=== PATIENT | male | born 1975 | race Caucasian/White ===

== ENCOUNTER 2017-11-13 09:38 | Emergency (ER) | payer SELFPAY ==
[~2017-11-13] VITALS: Ht 188 cm; Wt 90.7 kg
[2017-11-13] MEDS ORDERED: IV NORMAL SALINE 1,000ML 1,000 ML IV ONE (10:00)
[2017-11-13] MEDS ORDERED: KETOROLAC 30 MG/ML VIAL. IV ONE (10:15)
[2017-11-13] MEDS ORDERED: ONDANSETRON PF 4 MG/2 ML VIAL. IV ONE (10:15)
--- NOTE | 2017-11-13 10:26 | ED.ADGEN ---
Past History Past Medical History: Other Past Surgical History: No Surgical History Alcohol Use: None Drug Use: None Adult General Chief Complaint Chief Complaint Left flank pain [facility] HPI Patient is a 42-year-old male who presents with left flank pain. Pain is sharp, rated moderate to severe is intermittent and radiates from flank to left groin. No palliative or provocative features. Symptom onset was yesterday. Pain feels similar to previous kidney stone episodes. Reports nausea no vomiting. No fever chills or sweats. No hematuria, urinary frequency or decreased urinary output. No other acute symptoms or complaints. [] Review of Systems Review of Systems ROS as per HPI[] All other systems were reviewed and found to be within normal limits, except as documented in this note. Current Medications Current Medications Current Medications Medications (Trade) Dose Ordered Sig/Jamel Start Time Stop Time Status Last Admin Dose Admin Acetaminophen/ Hydrocodone Bitart (Lortab 5/325) 1 tab 1X ONCE 11/13/17 11:45 11/13/17 11:46 DC 11/13/17 11:59 1 TAB Ketorolac Tromethamine (Toradol) 30 mg 1X ONCE 11/13/17 10:15 11/13/17 10:16 DC 11/13/17 10:03 30 MG Ondansetron HCl (Zofran) 4 mg 1X ONCE 11/13/17 10:15 11/13/17 10:16 DC 11/13/17 10:03 4 MG Sodium Chloride 1,000 ml @ 1,000 mls/hr 1X ONCE 11/13/17 10:00 11/13/17 10:59 DC 11/13/17 10:03 1,000 MLS/HR Allergies Allergies Allergies Coded Allergies Type Severity Reaction Last Updated Verified No Known Drug Allergies 11/13/17 No Physical Exam Physical Exam Constitutional: Well developed, well nourished, moderate distress secondary to pain. [] HENT: Normocephalic, atraumatic, bilateral external ears normal, oropharynx moist, no oral exudates, nose normal. [] Eyes: PERRLA, EOMI, conjunctiva normal, no discharge. [] Neck: Normal range of motion, no tenderness, supple, no stridor. [] Cardiovascular:Heart rate regular rhythm, no murmur [] Lungs & Thorax: Bilateral breath sounds clear to auscultation [] Abdomen: Bowel sounds normal, soft, no tenderness. [] Skin: Warm, dry, no erythema. [] Back: No tenderness. [] Extremities: No tenderness, no edema. [] Neurologic: Alert and oriented X 3, normal motor function, normal sensory function, no focal deficits noted. [] Psychologic: Affect normal, judgement normal, mood normal. [] Current Patient Data Vital Signs Vital Signs Date Time Temp Pulse Resp B/P (MAP) Pulse Ox O2 Delivery O2 Flow Rate FiO2 11/13/17 12:51 74 20 122/83 (96) 100 11/13/17 11:59 Room Air 11/13/17 09:55 98.7 Lab Results Laboratory Tests Test 11/13/17 11:39 Urine Collection Type Unknown Urine Color Juanita Urine Clarity Clear Urine pH >8.5 Urine Specific Amery 1.015 Urine Protein 30 mg/dl (NEG-TRACE) Urine Glucose (UA) Neg mg/dL (NEG) Urine Ketones (Stick) Neg mg/dL (NEG) Urine Blood Trace (NEG) Urine Nitrite Neg (NEG) Urine Bilirubin Neg (NEG) Urine Urobilinogen Dipstick 0.2 mg/dL (0.2 mg/dL) Urine Leukocyte Esterase Neg (NEG) Urine RBC 6-10 /HPF (0-2) Urine WBC Rare /HPF (0-4) Urine Squamous Epithelial Cells Occ /LPF Urine Bacteria 0 /HPF (0-FEW) Urine Hyaline Casts Occ /HPF Urine Mucus Mod /LPF EKG EKG [] Radiology/Procedures Radiology/Procedures CT abd/pelvis: L hydroureter with recently passed 6 mm in bladder per radiology report. [] Course & Med Decision Making Course & Med Decision Making Pertinent Labs and Imaging studies reviewed. (See chart for details) [Symptoms improved with tx. UA and CT reviewed. Recommend supportive care with PCP follow-up.] Final Impression Final Impression [1. Left flank pain 2. Ureteral colic] Dragon Disclaimer Dragon Disclaimer This electronic medical record was generated, in whole or in part, using a voice recognition dictation system. CORY SANCHES DO Nov 13, 2017 10:26
--- NOTE | 2017-11-13 10:42 | RAD ---
Examination: CT of the abdomen and pelvis without contrast HISTORY: History of left flank pain, severe abdominal pain COMPARISON: None available TECHNIQUE: Axial CT images of the abdomen pelvis were performed without contrast. Coronal and sagittal reformats are performed Exposure: One or more of the following individualized dose reduction techniques were utilized for this examination: 1. Automated exposure control 2. Adjustment of the mA and/or kV according to patient size 3. Use of iterative reconstruction technique FINDINGS: Minimal right lung base atelectasis. No evidence of free air identified in the abdomen. The evaluation of the solid organs is limited due to lack of IV contrast. The evaluation of the bowel is limited due to lack of oral contrast The visualized noncontrasted liver, spleen, adrenals grossly appears unremarkable. The gallbladder is mildly distended. The stomach is mildly distended. The visualized pancreas grossly appears unremarkable. The small bowel is nondilated. The appendix is normal. Feces and gas noted in the colon. Multiple intrarenal collecting system calculi identified in the right kidney with the largest measuring 5 mm. Mild left-sided hydronephrosis and hydroureter identified with minimal surrounding fat stranding. There is a 6 mm calculus identified in the urinary bladder just distal to the left uterovesical junction. Urinary bladder is minimally distended. Mild aortic atherosclerosis. Small fat and omentum-containing umbilical hernia. Mild degenerative changes lumbar spine. IMPRESSION: 1. Mild left-sided hydronephrosis and hydroureter with a 6 mm calculus in the urinary bladder just distal to the left ureterovesical junction. 2. Multiple right intrarenal collecting system calculi with the largest measuring 5 mm. 3. Small fat and omentum-containing umbilical hernia. Electronically signed by: Pilo Brar MD (11/13/2017 10:39 AM) [id number]
[2017-11-13] MEDS ORDERED: HYDROcodone/APAP 5/325MG 1 TAB TABLET PO ONE (11:45)
[2017-11-13 11:54] LABS: BILIRUBIN,URINE NEG (NEG); CLARITY,URINE CLEAR; COLOR,URINE AMBER; GLUCOSE,URINE NEG (NEG)
[2017-11-13 11:55] LABS: BACTERIA,URINE 0 /HPF (0-FEW); HYALINE CASTS, URINE OCC /HPF; NITRITE,URINE NEG (NEG); SQUAMOUS EPITHELIAL CELL,UR OCC /LPF; UROBILINOGEN,URINE 0.2 mg/dL (0.2 mg/dL); WBC,URINE RARE /HPF (0-4)
[2017-11-13] MEDS ORDERED: TAMS0.4C97 PO (12:36)
[2017-11-13 12:51] VITALS: BP 122/83
== END 2017-11-13 12:39 | disposition home or self-care (01) ==
LOC: ER 09:38
DX: N23 Unspecified renal colic (principal)
CPT/HCPCS: 74176; 81001; 96374; 96375; 99285; J1885; J2405; J7030